=== PATIENT | male | born 1970 | race Caucasian/White ===

== ENCOUNTER 2020-02-27 17:27 | Emergency (ER) | payer MEDICAID ==
--- NOTE | 2020-02-27 17:45 | NUR ---
Called no response
--- NOTE | 2020-02-27 18:00 | NUR ---
Called No response
--- NOTE | 2020-02-27 18:05 | NUR ---
Called No response-tawanda
== END 2020-02-27 18:06 | disposition home or self-care (01) ==
LOC: ER 17:33
DX: Z53.21 Procedure and treatment not carried out due to patient leaving prior to being seen by health care provider (principal)